=== PATIENT | female | born 1945 | race Caucasian/White ===

== ENCOUNTER 2022-04-30 08:38 | Outpatient (CLI) | payer MEDICARE, SELFPAY ==
[2022-04-30 13:55] LABS: Albumin* 4.5 g/dL (3.3-5.0)
[2022-04-30 13:56] LABS: Chloride* 102 mmol/L (96-114); Sodium* 136 mmol/L (135-149)
[2022-04-30 13:58] LABS: Cholesterol* 194 mg/dL (90-199); Creatinine* 0.6 mg/dL (0.5-1.5); Estimated Glomerular Filt Rate 92 ml/min
[2022-04-30 13:59] LABS: Alanine Aminotransferase* 15 U/L (4-35); Alkaline Phosphatase* 75 U/L (40-150); Aspartate Amino Transferase* 35 U/L (12-35); Bilirubin Total* 0.5 mg/dL (0.1-1.5); Blood Urea Nitrogen* 19 mg/dL (7-30); Carbon Dioxide* 28 mmol/L (20-32); Glucose* 97 mg/dL (60-115); Total Protein* 7.2 g/dL (6.0-8.3); Triglycerides* 154 mg/dL (40-149)
[2022-04-30 14:00] LABS: Calcium* 9.4 mg/dL (8.4-10.6); HDL Cholesterol* 58 mg/dL (>=50); LDL Cholesterol Calculated 105 mg/dL (<100); Potassium* 5.2 mmol/L (3.6-5.1)
== END 2022-04-30 08:39 | disposition home or self-care (01) ==
PROVIDERS: PCP Physician Assistant Medical; Visit Provider Physician Assistant Medical
DX: Z00.00 Encounter for general adult medical examination without abnormal findings (principal); I10 Essential (primary) hypertension; E78.5 Hyperlipidemia, unspecified; Z13.29 Encounter for screening for other suspected endocrine disorder
CPT/HCPCS: 80053; 80061; 84443

== ENCOUNTER 2023-05-11 15:36 | Outpatient (CLI) | payer MEDICARE, SELFPAY | END 2023-05-11 15:37 | disposition home or self-care (01) | LOC: NFLDREF 05-13 11:32 | PROVIDERS: PCP Physician Assistant Medical; Referring Provider Physician Assistant Medical; Visit Provider Obstetrics & Gynecology | DX: R32 Unspecified urinary incontinence (principal); N81.3 Complete uterovaginal prolapse | CPT/HCPCS: 87086; 87186 ==

== ENCOUNTER 2023-06-03 10:39 | Outpatient (CLI) | payer MEDICARE, SELFPAY | END 2023-06-03 10:40 | disposition home or self-care (01) | LOC: NFLDREF 06-04 03:47 | PROVIDERS: PCP Physician Assistant Medical; Referring Provider Physician Assistant Medical; Visit Provider Physician Assistant Medical | DX: N39.0 Urinary tract infection, site not specified (principal); Z01.818 Encounter for other preprocedural examination | CPT/HCPCS: 87086 ==

== ENCOUNTER 2023-06-16 06:06 | Day surgery (SDC) | payer MEDICARE, SELFPAY ==
[2023-06-16] VITALS (34 sets, daily range): BP systolic 88–180; BP diastolic 43–97; PULSE 62–99; RESP 11–18; TEMP 34.4–36.9; O2SAT 90–98; BMI 20.2
--- OUTSIDE RECORDS SUMMARY | 2023-06-16 06:07 | XMS_ITS | Continuity of Care Document ---
Author Name Unknown Organization [facility] Address [address] [address] [place] [address] Phone Care Team Providers Care Teacher Vocal Name Role Phone Kana Vallejo MD Unavailable Unavailable Allergies, Adverse Reactions, Alerts Substance Reaction Status Criticality No Known allergies Medications Medication Instructions Dosage Effective Dates (start - stop) Status Comments simvastatin 40 mg Tab Take one tablet by mouth daily - Active Asacol 400 mg Tab Take two tablets by mouth twice per day - Active magnesium 200 mg Tab Take two tablets by mouth daily - Active zinc 50 mg Tab Take one tablet by mouth daily - Active CALCIUM + VITAMIN D 600-200TABLET Take one tablet by mouth daily - Active ascorbic acid 1,000 mg Tab Take two tablets by mouth daily - Active SELENIUM 25MCGTABLET Take one tablet by mouth daily - Active enalapril maleate 20 mg Tab Take one tablet by mouth daily - Active potassium 99 mg Tab Take one tablet by mouth daily - Active multivitamin Tab Take one tablet by mouth daily - Active Procedures Procedure Date Colonoscopy Flex; W/bx 1/mx Level Iv-surg Path Gross/micro 09 Offic/outpt E&m Estab Mod-hi 2 07 Advance Directives Directive Yes / No Effective Date File Name No Information Encounters Encounter Description Practice Location Reason(s) For Visit Diagnoses Date Provider Providers Copied on Encounter [facility], [address] [address], [place], [place], [address], [place] tel:[phone] [facility] No Information 0 Yoni Roger. [address] [facility], [facility] [address], [place], [place], [address], [place]. tel:[phone] [facility] [place], [address] [address], [place], [place], [address], [place] tel:[phone] [facility] Polyp-intes/re ct/stom-unc BehColon Cancer ScreeningRecta l Polyp/Benign 200 9 No Information Referring Provider: Kailey Bustos MD M, [address] , [place], [address]. tel:[phone] Offic/outpt E&m Estab Mod-hi 2 [facility] [place], [address] [address], [place], [place], [address], [place] tel:[phone] [facility] Ulcerative Proctosigmoidi tis 7 No Information [facility] [place], [address] [address], [place], [place], [address], [place] tel:[phone] [facility] No Information 7 Gretta Ordonez. [address] [facility], [facility] [address], [place], [place], [address], [place]. tel:[phone] Family History Family Member Type Diagnosis Age At Onset No Information Payers Payer name Insurance type Covered republican ID Authoriza woo(s) [employer] Of [place] BL [id number] Social History Type Description Quantity Date Captured Comments Sex Female Smoking Status No Information Chief Complaint And Reason For Visit No Information Reason For Referral Reason For Referral No Information History Of Present Illness Encounter Date Complaint History Of Prese nt Illness No Information Functional Status Date Functional Assessmen t No Information Instructions Date Instruction Additional Infor mation No Information Assessments Type Assessment Date No Information Patient Care Teams Name Effective Dates (start - stop) Status Members No Information
--- OUTSIDE RECORDS SUMMARY | 2023-06-16 06:08 | XMS_ITS | Continuity of Care Document ---
Author Name Unknown Organization [facility] Address [address] [address] [place] [address] Phone Care Team Providers Care Lump Maker Name Role Phone Kana Vallejo MD Unavailable [...] Diagnoses Date Provider Providers Copied on Encounter [facility], [address] [address], [place], [place], [address], [place] tel:[phone] [facility] No Information 0 Yoni Roger. [address] [facility], [facility] [address], [place], [place], [address], [place]. tel:[phone] [facility] [place], [address] [address], [place], [place], [address], [place] tel:[phone] [facility] Polyp-intes/re ct/stom-unc BehColon Cancer ScreeningRecta l Polyp/Benign 200 9 No Information Referring Provider: Kailey Bustos MD M, [address] , [place], [address]. tel:[phone] Offic/outpt E&m Estab Mod-hi 2 [facility] [place], [address] [address], [place], [place], [address], [place] tel:[phone] [facility] Ulcerative Proctosigmoidi tis 7 No Information [facility] [place], [address] [address], [place], [place], [address], [place] tel:[phone] [facility] No Information 7 Gretta Ordonez. [address] [facility], [facility] [address], [place], [place], [address], [place]. tel:[phone] Family History Family Member Type Diagnosis Age At Onset No Information Payers Payer name Insurance type Covered libertarian ID Authoriza woo(s) [employer] Of [place] BL [id number] Social History Type Description Quantity Date Captured [...]
[2023-06-16] MEDS: SODIUM CHLORIDE 0.9 % (FLUSH) 10 ML SYRINGE IVF (06:40)
[2023-06-16] MEDS: LACTATED RINGERS 1000 ML 1,000 ML 100 ML IV (06:40)
[2023-06-16 06:58] LABS: Hemoglobin* 12.8 gm/dL (12.0-16.0)
[2023-06-16 07:19] LABS: Creatinine* 0.6 mg/dL (0.5-1.5); Est. Creatinine Clearance* 42.37; Estimated Glomerular Filt Rate 91 ml/min
--- NOTE | 2023-06-16 08:01 | P.PCN_ITS ---
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 Postoperative diagnosis: Same, left ovarian cyst Procedure: Total vaginal hysterectomy, anterior and posterior repair. Morfin's culdoplasty. Diagnostic cystoscopy Anesthesia: Spinal, local. Surgeon: Angelica Torres MD facilities maintenance assistant: Rashaun Levin MD Primary surgeon for diagnostic cystoscopy was Dr. Fonseca EBL: 125 mL IV Fluid: 800 mL Urine output: Not recorded because much of the urine output was cystoscopy fluid. Drains: Kirkland to gravity: Clear urine at the end of the procedure., Vaginal pack in place Specimen: 1. Uterus with cervix and right ovary and right fallopian tube. 2. Left ovary and left fallopian tube. Both to pathology Findings: On exam under anesthesia: Less than 8 week size uterus with complete procidentia. Large external hemorrhoids. Prolapse: Grade 4. Short perineal body Other: Right ovary and tube appeared normal. Left tube appeared normal. Left ovary had an approximately 2-3 cm serous cyst. Procedure: Светлана was taken to the operating room where general anesthesia was found be adequate. She is placed in the dorsal lithotomy position and an exam under anesthesia performed with the findings stated above. She was then prepped and draped in a sterile manner. The diagnostic cystoscopy was performed. Please see Dr. Fonseca is note for complete details. A Kirkland catheter was placed. A weighted speculum was placed in the posterior aspect of the vaginal introitus. The cervix was grasped with a double toothed tenaculum and the cervix circumferentially injected dilute vasopressin, 20 units diluted in 50 mL of saline. A circumferential incision was made around the cervix with a scalpel. The anterior vaginal mucosa was grasped with an Allis clamp and the anterior cul-de-sac formed with Metzenbaum scissors. The peritoneum was grasped an with toothed forceps and the peritoneum entered sharply with Metzenbaum scissors. This opening was extended with blunt pressure and a Liam retractor placed through the opening. The posterior cul-de-sac was entered sharply with Williamson scissors and a long weighted speculum was placed. Pedicles of the hysterectomy were formed using Heriberto clamps. All pedicles were Heriberto transfixed. The 1st pedicle was formed on the patient's left incorporating the uterosacral ligament. This was divided and Daysi transfixed. These sutures were tagged with a small clamp. The right uterosacral ligament was grasped in the 1st right pedicle that pedicle was divided, Heriberto transfixed in the sutures held with a small Radha clamp. Sequential pedicles were then formed using Daysi clamps, all pedicles were divided sharply and Heriberto transfixed. At the level of the cornea at the utero ovarian ligament ligament were cross-clamped with a Daysi clamp and divided. The cornual pedicles were doubly suture ligated: 1st with an 0 Vicryl free tie followed by an 0 Vicryl stick tie in a fore and aft manner. All pedicles were noted to be hemostatic. The long weighted speculum was removed and the short weighted speculum replaced in the vaginal introitus. In Morfin's culdoplasty was performed. The peritoneum was identified circumferentially and grasped with 2 Allis clamps. The weighted speculum removed. The vaginal cuff was re-approximated using 0 Vicryl sutures in a figure of X manner. The uterosacral pedicles were incorporated into each apex of the vaginal cuff. The Morfin's culdoplasty suture was tied after the vaginal cuff was closed. Excellent hemostasis was noted. Attention was turned to performing the anterior repair. Allis clamp was placed in the midline of the anterior vaginal mucosa approximately 1 cm under the urethral meatus. Two additional Allis clamps were placed 1 just superior to each apex of the vaginal cuff repair. 1% lidocaine with epinephrine was injected between the 2 Allis clamps just above the cuff and in the midline to the Allis that was placed below the urethral meatus. A horizontal incision was then made between the 2 Allis clamps just above the vaginal cuff. Is vaginal mucosa was undermined with the Metzenbaum scissors. The excess mucosa was grasped with a combination of Mak and Allis clamps. The underlying fascial tissue was mobilized from the vaginal mucosa using an open Ray-Emy sponge. Two 0 Vicryl interrupted sutures were used to grasp the lateral vaginal fascial tissue and tied together in the midline. The excess vaginal mucosa was then removed and the remaining vertical incision was re-approximated using 3-0 Vicryl in a running locked manner. Excellent hemostasis verified. Attention was turned to performing the posterior repair. An Allis clamp was placed at the apex of the posterior repair in the midline of the vaginal mucosa posteriorly, 2 Allis clamps were placed in the posterior introitus approximately 1 cm within the introitus. 1% lidocaine with epinephrine was instilled between the 2 horizontal clamps and in the midline to the apical clamp. A horizontal incision was made between the 2 most proximal Allis clamps and a horizontal midline incision was made from the apex clamp to the midline horizontal incision. The vaginal mucosa was then undermined with Metzenbaum scissors and the vaginal fascia was mobilized from the mucosa using a Ray-Emy sponge. The lateral vaginal fascia was then reapproximated using 2 0 Vicryl interrupted sutures. The excess mucosal tissue was removed and the remaining incision reapproximated using 3-0 Vicryl in a running locked manner. Hemostasis verified. A vaginal pack with Premarin cream was placed in the vaginal canal to be removed tomorrow morning by the physician. Sponge, lap and instrument counts were correct x2 at the end of the procedure and the patient was taken to the recovery room in stable condition. Prior to the procedure the patient received: 2 g Ancef for antibiotic prophylaxis
[2023-06-16] MEDS: CEFAZOLIN 2 GM INJ IVP (08:05)
[2023-06-16] MEDS: 0.9 % SODIUM CHLORIDE 50 ml INJECTION (08:15)
[2023-06-16] MEDS: ESTROGENS, CONJUGATED VAGINAL 0.625 MG/G CREAM 1 APPLIC VAGINAL (10:16)
[2023-06-16] MEDS: VASOPRESSIN 20 UNIT/ML INJ INJECTION (10:23)
--- NOTE | 2023-06-16 10:24 | P.GYNPRC_ITS ---
Procedure Note Time Seen by Provider: 10:24 Date of procedure: 06/16/23 Pre-op diagnosis: Stage 4 uterine and anterior vaginal prolapse Procedure: Diagnostic cystoscopy Complications: Uncomplicated, however the planned procedure of bilateral ureteral stent placement could not be technically accomplished secondary to distorted anatomy given severe uterine and anterior pelvic organ prolapse. Surgeon: Rashaun Egan MD Meter Calibrator: Angelica Torres Findings: Exam under anesthesia significant for stage IV uterine and anterior pelvic organ prolapse resulting in significantly altered anatomy Narrow ureteral orifices bilaterally Procedure Description: Patient was taken to the operating room with IV running. She received cefazolin in preoperative prophylaxis. She was positioned on the operating table in dorsal lithotomy position with candy-cane stirrups. She was prepped and draped in the usual sterile fashion. Exam under anesthesia revealed the above-noted findings. Diagnostic cystoscopy with the 30 degree cystoscope was performed. No focal bladder lesions visualized. Ureteral orifices were unable to be visualized given severe degree of uterine and anterior pelvic organ prolapse. The uterus was suspended with use of a vaginal sponge stick, where we could still not visualize the UOs secondary to prolapse. We transitioned to the 70 degree cystoscope to see if this could improve visualization without success. Gentle digital vaginal exam was attempted to assist with visualization, where the trigone of the bladder could then be visualized. The right ureteral orifice was noted to be significantly narrowed. Left ureteral orifice was narrowed as well, but I did suspect we could pass the stent during concurrent ureteral efflux. 0.035 flexible tip wire was introduced into the operative channel of the cystoscope. Even still, the wire could not be passed through the left ureteral orifice due to significantly altered anatomy resulting in an acute inferior angle to access the UO. A deflecting operative bridge was unavailable. Ultimately, decision was made to stop efforts for ureteral stenting given significantly altered anatomy in the setting of stage 4 uterine and anterior prolapse. Cystoscope was removed and urinary vargas catheter was inserted to drain the bladder. Procedure was turned over to Dr. Torres for planned total vaginal hysterectomy, bilateral salpingo-oophorectomy, anterior and posterior repairs. Diagnostic cystoscopy procedure was well tolerated and uncomplicated.
[2023-06-16] MEDS: HYDROmorphone 0.5 mg/0.5 ml inj IVP (10:35)
--- NOTE | 2023-06-16 10:45 | W.ANESCHARGE ---
Anesthesia Charges Start Date/Time Anesthesia Start Date: 06/16/23 Anesthesia Start Time: 07:37 Stop Date/Time Anesthesia Stop Date: 06/16/23 Anesthesia Stop Time: 10:30
[2023-06-16] MEDS: fentaNYL 100 MCG/2 ML inj 50 MCG IVP (10:55)
[2023-06-16] MEDS: KETOROLAC 15 MG/ML inj IVP ×2 (12:32→18:50)
[2023-06-16] MEDS: LACTATED RINGERS 1000 ML 1,000 ML 125 ML IV (12:35)
--- NOTE | 2023-06-16 14:03 | W.PM.H&PU ---
History & Physical Update History & Physical Update H&P Reviewed and patient assessed: No changes noted
[2023-06-16] MEDS: ENALAPRIL MALEATE 10 MG TABLET 20 MG PO (18:50)
[2023-06-16] MEDS: sulfaSALAzine 500 MG TABLET PO ×2 (19:23→20:39)
--- NOTE | 2023-06-16 20:10 | PC.NURSE ---
End of shift-- Pleasant and cooperative, alert and oriented patient arrived from PACU at approximately 11
--- NOTE | 2023-06-16 20:11 | PC.NURSE ---
End of shift-- Very pleasant and cooperative, alert and oriented patient arrived from PACU at approximately 1130. VSS, though mildly hypertensive, and pt is afebrile. SPO2 maintained >90% on RA. She c/o some surgical pain initially and later some chronic left hip pain that appears well managed with scheduled Toradol. She has had a moderate amount of bloody drainage that saturated vaginal packing and pad over the course of about 6 hours. Pad was changed and will be monitored by oncoming shift. LS CTA. She denied nausea and is slowly eating a regular dinner at this time without difficulty. Kirkland is patent and draining adequate amounts of blue-green urine. Pt was up and walked in room and sat on toilet this evening with SBA and tolerated it well. Report to [facility].
[2023-06-16] MEDS: SIMVASTATIN 40 MG TABLET PO (20:39)
[2023-06-17] VITALS (10 sets, daily range): BP systolic 153–156; BP diastolic 76–92; PULSE 81–88; RESP 15–18; TEMP 36.8–36.9; O2SAT 93–98
[2023-06-17] MEDS: KETOROLAC 15 MG/ML inj IVP (00:09)
--- NOTE | 2023-06-17 06:39 | PC.NURSE ---
End of shift report [id number]: Patient alert and oriented x 4, pleasant and cooperative with cares. Pain to vaginal area reported at 1/10, no PRN medication needed as pain is tolerable for patient. Pad changed at 2100 and was 25% saturated, checked periodically throughout the night and pad remain at 25% saturated Q4H. Catheter discontinued at 0550 without complication and catheter tip intact. Urine is clear and pale yellow in color. Ambulates with walker for comfort, patient usually does not use an assistive device but did request one while in hospital.
[2023-06-17] MEDS: sulfaSALAzine 500 MG TABLET PO (08:24)
[2023-06-17] MEDS: ACETAMINOPHEN 325 MG TABLET 650 MG PO (08:24)
[2023-06-17] MEDS: FEXOFENADINE 180 MG TABLET PO (08:25)
--- NOTE | 2023-06-17 08:41 | P.DS_ITS ---
DS: Providers Provider Time Seen by Provider: 07:30 Date Seen: 06/17/23 Primary care physician: Poonam Macedo PA-C Attending Physician on discharge: Rashaun Egan MD ENVIRONMENTAL PROTECTION SPECIALIST-Discharge Summary Hospital Course Hospital Course Narrative: Patient is a 78 year old admitted on 06/17/2023 for post-op care following TVH, B SO, anterior and posterior repairs, cystoscopy. Indication for surgery: Pelvic Organ Prolapse. Intraoperative findings were notable for stage 4 uterine, anterior and stage 2 posterior prolapse. She had an uncomplicated surgery. Postoperative course has been uneventful. Vitals have been stable. She has remained afebrile. Today, on postoperative day 1, she reports the pain is well controlled. She has not utilized any narcotics, notes oxycodone made her vomit previously. We discussed a trial of tramadol as needed after dismissal, just so she had a stronger pain medicine on hand if needed. She will either not pick this up or will dispose of medications following postoperative course if not needed. She has been able to ambulate Without difficulty. She is tolerating regular diet. She is passing flatus. Kirkland catheter has been removed, will complete a PVR after spontaneous void this morning. Time Spent with Patient Time attestation: Total time spent providing and/or coordinating discharge services: Time spent: Less than 30 minutes ENVIRONMENTAL PROTECTION SPECIALIST - Exam Physical Exam: Vital signs: Temp Pulse Resp BP Pulse Ox O2 Del Method 98.5 F 81 16 153/92 H 95 Room Air 06/17/23 07:00 06/17/23 07:00 06/17/23 07:23 06/17/23 07:00 06/17/23 07:00 06/17/23 07:00 Narrative: General: No acute distress Psych: Alert and oriented x 3, full affect Abdomen: Normoactive bowel sounds, soft, no tenderness, rebound, or guarding, no masses, no hepatosplenomegaly, no hernias Lower extremities: No calf pain, erythema or swelling ENVIRONMENTAL PROTECTION SPECIALIST - DS: Data Data Completed and Pending Labs on day of discharge: Labs from last 24 hours 06/17/23 06:15 Hgb 13.0 Procedures Procedures: Procedures Operation Date: 06/16/23 07:15 Actual Procedure Side Surgeon p Total Vaginal Hysterectomy, Bilateral Salpingo-Oophorectomy, Anterior and Posterior Vaginal Repairs, Morfin's Culdoplasty, Diagnostic Cystoscopy Not Applicable Angelica Torres MD Discharge Plan Discharge Disposition: Home, Self-Care Discharging Surgeon: Yumiko Egan Follow-Up Appointment: Already scheduled: 1. 2-3wks. 2. 6 weeks. Prescriptions: New acetaminophen 325 mg Tablet 650 mg PO Q4H PRN (Reason: minor pain) Qty: 100 0RF docusate sodium 100 mg Capsule 100 mg PO BID PRN (Reason: Constipation) Qty: 100 0RF oxycodone 5 mg Tablet 5 mg PO 3XD PRNQty: 21 0RF Premarin 0.625 mg/gram cream 0.625 mg vaginal DAILY 14 Days Qty: 30 1RF Rx Instructions: Utilize daily at bedtime for 14 days tramadol 50 mg tablet 50 mg PO Q8H PRN (Reason: pain) Qty: 10 0RF Continued Multiple vitamin PO zinc acetate 25 mg (zinc) capsule 50 mg PO QDAY B-Complex PO turmeric 1,500 mg PO fexofenadine [Allergy Relief (fexofenadine)] 180 mg tablet 180 mg PO Q24H magnesium 250 mg tablet 250 mg PO QDAY ascorbate calcium (vitamin C) 500 mg tablet 1 g PO Q6H enalapril maleate 20 mg tablet 20 mg PO QPM Qty: 90 3RF sulfasalazine 500 mg tablet 500 mg PO QID Qty: 360 0RF Rx Instructions: Take 1 tablet 4 times daily for ulcerative colitis simvastatin 40 mg tablet 40 mg PO .Bedtime Qty: 90 0RF Activity Level: Activity as Tolerated Discharge Diet: Regular Patient Instructions: Vaginal Hysterectomy (DC), Vaginal Hysterectomy (GEN) Additional Instructions: ACTIVITY RESTRICTIONS: - Nothing vaginally for 6 weeks: no tampons/intercourse - No driving while taking narcotic pain medication during the day. 1-2 weeks. - Lifting restriction: Maximum of 10 pounds for 6 weeks. (A gallon of milk is 9 pounds). - High impact or core exercises: 3 weeks. - Submerge in water (bath/pool/packer): 2 weeks. NO RESTRICTIONS for: - Walking - Going up/down stairs - Showering Symptoms to report to your doctor - Bleeding that is red, like a moderate period - Passing clots larger than the size of a golf ball - Pain not relieved by prescribed medication - Fever above 100.4 degrees Fahrenheit - A foul vaginal odor - Decrease in urination or painful, frequent urinating - Chest pain - Shortness of breath - Tenderness or pain with redness and/swelling in the calf(s) of your leg Follow-up Appointments with Angelica Torres MD: 1. [facility] for an incision check. 2. A 6 week postop visit to verify that the vaginal cuff is well-healed. Forms: Work/School Release Follow-up: Angelica Torres MD [Staff Physician] - Poonam Macedo PA-C [Primary Care Provider] - Discharge Orders: Discharge Order (Routine); Ordered 06/17/23 Ordered By: Yumiko Egan Consulting provider completed their portion of the discharge: Yes
--- NOTE | 2023-06-17 09:36 | PC.NURSE ---
Pt voided 100 mL of cj colored urine in collection container and PVR of 95 mL upon bladder scan. Preceptor RN updated OBGYN provider.
--- NOTE | 2023-06-17 10:40 | PC.NURSE ---
Voiding trial completed per order though pt was only able to tolerate 200 mL of saline solution instilled before c/o discomfort. Pt was able to void 400 mL of cj urine upon followup. MD Egan updated and advised RN to perform repeat bladder scan- 43 mL noted PVR. updated with result and stated that pt can discharge.
--- NOTE | 2023-06-17 11:54 | PC.NURSE ---
Pt discharged at 11:39 today with son providing transportation. IV removed from L wrist prior to discharge with catheter noted to be intact. Discharge paperwork reviewed including activity instructions and follow up care. Patient voided 400 mL with last urination and was noted to only have 43 mL PVR. Lung sounds clear to all lobes bilaterally and bowel sounds active x 4. Pt having less than 25% of pad saturations prior to discharge. The only c/o pain pt had this morning was L hip and she stated this has been a source of chronic pain. Pt able to complete ADLs indepedenently and denied shortness of breath, nausea, CP, numbness and tingling when asked prior to discharge.
== END 2023-06-17 11:39 | disposition home or self-care (01) ==
LOC: OR 06:06 → MEDSURG 06:09
PROVIDERS: Obstetrics & Gynecology; PCP Physician Assistant Medical; Visit Provider Obstetrics & Gynecology
PROC: 0TJB8ZZ Inspection of Bladder, Via Natural or Artificial Opening Endoscopic (ICD-10-PCS; CPT 57260; principal; 2023-06-16 07:15)
DX: N81.3 Complete uterovaginal prolapse (principal); N83.292 Other ovarian cyst, left side; N13.5 Crossing vessel and stricture of ureter without hydronephrosis; K64.4 Residual hemorrhoidal skin tags
CPT/HCPCS: 58263; 57265; 00944; 36415; 82565; 85018; 86850; 86900; 86901; 88305; 88307; A9270; C1769; J0330; J0690; J1100; J1170; J1885; J2274; J2371; J2405; J2704; J3010; J7120

== ENCOUNTER 2023-08-19 13:58 | Outpatient (CLI) | payer MEDICARE, SELFPAY | END 2023-08-19 13:59 | disposition home or self-care (01) | PROVIDERS: PCP Physician Assistant Medical; Visit Provider Otolaryngology | DX: N39.0 Urinary tract infection, site not specified (principal); I10 Essential (primary) hypertension; E78.5 Hyperlipidemia, unspecified; D72.819 Decreased white blood cell count, unspecified; H91.20 Sudden idiopathic hearing loss, unspecified ear | CPT/HCPCS: 84443; 86039; 86431; 86618 ==

== ENCOUNTER 2023-08-26 10:35 | Outpatient (CLI) | payer MEDICARE, SELFPAY | END 2023-08-26 10:36 | disposition home or self-care (01) | LOC: NFLDREF 08-30 11:05 | PROVIDERS: PCP Physician Assistant Medical; Referring Provider Physician Assistant Medical; Visit Provider Otolaryngology | DX: R76.8 Other specified abnormal immunological findings in serum (principal) | CPT/HCPCS: 86039 ==

== ENCOUNTER 2023-09-02 12:53 | Outpatient (CLI) | payer MEDICARE, SELFPAY ==
--- OUTSIDE RECORDS SUMMARY | 2023-09-07 02:55 | XMS_ITS | Continuity of Care Document ---
Author Name Unknown Organization [facility] Address [address] [address] [place] [address] Phone Care Team Providers Care Cellar Pumper Name Role Phone Kana Vallejo MD Unavailable [...] Diagnoses Date Provider Providers Copied on Encounter [facility], [address] [address], [place], [place], [address], [place] tel:[phone] [facility] No Information 0 Yoni Roger. [address] [facility], [facility] [address], [place], [place], [address], [place]. tel:[phone] [facility] [place], [address] [address], [place], [place], [address], [place] tel:[phone] [facility] Polyp-intes/re ct/stom-unc BehColon Cancer ScreeningRecta l Polyp/Benign 200 9 No Information Referring Provider: Kailey Bustos MD M, [address] , [place], [address]. tel:[phone] Offic/outpt E&m Estab Mod-hi [address] [facility] [place], [address] [address], [place], [place], [address], [place] tel:[phone] [facility] Ulcerative Proctosigmoidi tis 7 No Information [facility] [place], [address] [address], [place], [place], [address], [place] tel:[phone] [facility] No Information 7 Gretta Ordonez. [address] [facility], [facility] [address], [place], [place], [address], [place]. tel:[phone] Family History Family Member Type Diagnosis Age At Onset No Information Payers Payer name Insurance type Covered libertarian ID Authoriza woo(s) [employer] Of [place] BL [id number] Social History Type Description Quantity Date Captured [...]
== END 2023-09-02 12:54 | disposition home or self-care (01) ==
LOC: NFLDREF 09-07 02:52
PROVIDERS: PCP Physician Assistant Medical; Referring Provider Physician Assistant Medical; Visit Provider Physician Assistant Medical
DX: R30.0 Dysuria (principal)
CPT/HCPCS: 87086; 87186

== ENCOUNTER 2023-09-23 10:28 | Outpatient (CLI) | payer MEDICARE, SELFPAY | END 2023-09-23 10:29 | disposition home or self-care (01) | LOC: NFLDREF 09-25 08:01 | PROVIDERS: PCP Physician Assistant Medical; Referring Provider Physician Assistant Medical; Visit Provider Physician Assistant Medical | DX: R76.8 Other specified abnormal immunological findings in serum (principal) | CPT/HCPCS: 86039 ==

== ENCOUNTER 2023-10-02 11:00 | Outpatient (CLI) | payer MEDICARE, SELFPAY | END 2023-10-02 11:01 | disposition home or self-care (01) | LOC: NFLDREF 10-14 12:14 | PROVIDERS: PCP Physician Assistant Medical; Referring Provider Physician Assistant Medical; Visit Provider Physician Assistant Medical | DX: R80.9 Proteinuria, unspecified (principal) | CPT/HCPCS: 82570; 84156 ==

== ENCOUNTER 2023-10-12 14:51 | Outpatient (CLI) | payer MEDICARE, SELFPAY ==
--- NOTE | 2023-10-12 15:00 | US_ITS ---
Final Report Patient: IHSAN REGALADO Facility:?[facility] Patient ID:?[id number] Site Patient ID:?[id number]. Site :?1945 Study:?US Abdomen renal Doppler-10/12/2023 6:20:57 PM Ordering Physician:BRENDA Final Report: INDICATION: Hypertension TECHNIQUE: Grayscale, color Doppler and power doppler evaluation of the kidneys and renal arteries performed. COMPARISON: None available FINDINGS: BILATERAL RENAL ARTERY DUPLEX ULTRASOUND ABDOMINAL AORTA: Peak systolic velocity = 59 cm/s. No aortic aneurysm. RIGHT KIDNEY: 10.5 cm in length. There is no hydronephrosis. Peak systolic velocity = 105 cm/second Renal artery to aortic peak systolic velocity ratio = 1.8 Resistive indices: 0.6-0.7 Renal vein = patent LEFT KIDNEY: 9.2 cm in length. There is no hydronephrosis. Simple cyst upper pole measuring 1.4 x 1.3 x 1.3 cm. Peak systolic velocity = 120 cm/second Renal artery to aortic peak systolic velocity ratio = 2.0 Resistive indices: 0.6 Renal vein = patent IMPRESSION: No evidence of significant renal artery stenosis. Dictated by José Luis Lopez MD @ 10/13/2023 12:11:23 PM (Electronic Signature)
== END 2023-10-12 14:52 | disposition home or self-care (01) ==
LOC: US 14:52
PROVIDERS: PCP Physician Assistant Medical; Visit Provider Physician Assistant Medical
DX: I10 Essential (primary) hypertension (principal)
CPT/HCPCS: 76775; 93975

== ENCOUNTER 2023-10-13 12:40 | Outpatient (CLI) | payer MEDICARE, SELFPAY ==
--- NOTE | 2023-10-13 13:00 | MR_ITS ---
Patient: IHSAN REGALADO Facility:?[facility] Patient ID:?[id number] Site Patient ID:?[id number]. Site :?1945 Study:?MRI-Head Angio WO-10/13/2023 3:50:07 PM Ordering Physician:BRENDA Final Report: INDICATION: Dizziness. Hearing loss. TECHNIQUE: MRI brain: Multiplanar multisequence MR imaging of the brain prior to and following intravenous contrast. MRA head: Baxx-qt-sxubkk imaging acquired. MRA neck: Mzkk-eb-rmvspw and postcontrast imaging acquired. COMPARISON: None. FINDINGS: MRI brain: Prominence of the ventricles and sulci compatible with mild diffuse cerebral volume loss. No mass effect or midline shift. Scattered and patchy FLAIR hyperintensities in the supratentorial white matter, typical for vzni-hf-ehrkqkyl chronic microvascular ischemic changes. Few punctate foci of susceptibility at the cortical-subcortical interface of both cerebral hemispheres as well as within the right basal ganglia and right internal capsule, typical for chronic microhemorrhages. No recent intracranial hemorrhage or pathologic extra-axial fluid collection. No diffusion restriction to suggest acute infarction. No pathologic intracranial enhancement. The major arterial flow voids of the skullbase are preserved. The globes are symmetric. The paranasal sinuses are well aerated. The mastoid air cells are clear. MRA head: The internal carotid, middle cerebral, and anterior cerebral arteries are patent. Mild atherosclerotic calcified irregularity of the cavernous internal carotid arteries. The vertebral, basilar, and posterior cerebral arteries are patent. Moderate narrowing right vertebral artery mid V4 segment. No intracranial aneurysm or high-flow vascular malformation. MRA neck: The innominate and subclavian arteries are widely patent. The common carotid arteries are widely patent. Mild atherosclerotic irregularity of the proximal cervical internal carotid arteries without hemodynamically significant luminal narrowing. The vertebral arteries are codominant and widely patent. IMPRESSION: MRI brain: 1. No acute intracranial abnormality. 2. Rofp-yu-hdrgyjlo chronic microvascular ischemic changes and mild diffuse cerebral and loss. MRA head/neck: 1. Moderate right vertebral artery mid V4 segment stenosis. Mild atherosclerotic irregularity of the cavernous internal carotid arteries. 2. No hemodynamically significant cervical artery narrowing. Dictated by Tashi Miller MD @ 10/13/2023 4:33:18 PM Signed by:?Tashi Miller MD @10/13/2023 4:33:18 PM (Electronic Signature)
--- NOTE | 2023-10-13 13:45 | MR_ITS ---
Patient: IHSAN REGALADO Facility:?[facility] Patient ID:?[id number] Site Patient ID:?[id number]. Site :?1945 Study:?MRI-Neck Angio WO/W DOTAREM 11ML-10/13/2023 3:55:42 PM Ordering Physician:BRENDA Final Report: INDICATION: Dizziness. Hearing loss. TECHNIQUE: MRI brain: Multiplanar multisequence MR imaging of the brain prior to and following intravenous contrast. MRA head: Jyxi-us-ulfxth imaging acquired. MRA neck: Kuor-xk-wchwry and postcontrast imaging acquired. COMPARISON: None. FINDINGS: MRI brain: Prominence of the ventricles and sulci compatible with mild diffuse cerebral volume loss. No mass effect or midline shift. Scattered and patchy FLAIR hyperintensities in the supratentorial white matter, typical for khlj-um-fqonklks chronic microvascular ischemic changes. Few punctate foci of susceptibility at the cortical-subcortical interface of both cerebral hemispheres as well as within the right basal ganglia and right internal capsule, typical for chronic microhemorrhages. No recent intracranial hemorrhage or pathologic extra-axial fluid collection. No diffusion restriction to suggest acute infarction. No pathologic intracranial enhancement. The major arterial flow voids of the skullbase are preserved. The globes are symmetric. The paranasal sinuses are well aerated. The mastoid air cells are clear. MRA head: The internal carotid, middle cerebral, and anterior cerebral arteries are patent. Mild atherosclerotic calcified irregularity of the cavernous internal carotid arteries. The vertebral, basilar, and posterior cerebral arteries are patent. Moderate narrowing right vertebral artery mid V4 segment. No intracranial aneurysm or high-flow vascular malformation. MRA neck: The innominate and subclavian arteries are widely patent. The common carotid arteries are widely patent. Mild atherosclerotic irregularity of the proximal cervical internal carotid arteries without hemodynamically significant luminal narrowing. The vertebral arteries are codominant and widely patent. IMPRESSION: MRI brain: 1. No acute intracranial abnormality. 2. Kudc-jz-alqocpza chronic microvascular ischemic changes and mild diffuse cerebral and loss. MRA head/neck: 1. Moderate right vertebral artery mid V4 segment stenosis. Mild atherosclerotic irregularity of the cavernous internal carotid arteries. 2. No hemodynamically significant cervical artery narrowing. Dictated by Tashi Miller MD @ 10/13/2023 4:32:42 PM Signed by:?Tashi Miller MD @10/13/2023 4:32:42 PM (Electronic Signature)
--- NOTE | 2023-10-13 14:45 | MR_ITS ---
Patient: IHSAN REGALADO Facility:?[facility] Patient ID:?[id number] Site Patient ID:?[id number]. Site :?1945 Study:?MRI-Head WO/W DOTAREM 11ML-10/13/2023 3:57:58 PM Ordering Physician:BRENDA Final Report: INDICATION: Dizziness. Hearing loss. TECHNIQUE: MRI brain: Multiplanar multisequence MR imaging of the brain prior to and following intravenous contrast. MRA head: Soxq-vp-gpzafv imaging acquired. MRA neck: Jabc-jj-oraqec and postcontrast imaging acquired. COMPARISON: None. FINDINGS: MRI brain: Prominence of the ventricles and sulci compatible with mild diffuse cerebral volume loss. No mass effect or midline shift. Scattered and patchy FLAIR hyperintensities in the supratentorial white matter, typical for jycw-oz-wbgrcxcg chronic microvascular ischemic changes. Few punctate foci of susceptibility at the cortical-subcortical interface of both cerebral hemispheres as well as within the right basal ganglia and right internal capsule, typical for chronic microhemorrhages. No recent intracranial hemorrhage or pathologic extra-axial fluid collection. No diffusion restriction to suggest acute infarction. No pathologic intracranial enhancement. The major arterial flow voids of the skullbase are preserved. The globes are symmetric. The paranasal sinuses are well aerated. The mastoid air cells are clear. MRA head: The internal carotid, middle cerebral, and anterior cerebral arteries are patent. Mild atherosclerotic calcified irregularity of the cavernous internal carotid arteries. The vertebral, basilar, and posterior cerebral arteries are patent. Moderate narrowing right vertebral artery mid V4 segment. No intracranial aneurysm or high-flow vascular malformation. MRA neck: The innominate and subclavian arteries are widely patent. The common carotid arteries are widely patent. Mild atherosclerotic irregularity of the proximal cervical internal carotid arteries without hemodynamically significant luminal narrowing. The vertebral arteries are codominant and widely patent. IMPRESSION: MRI brain: 1. No acute intracranial abnormality. 2. Pgji-oo-nigrzdun chronic microvascular ischemic changes and mild diffuse cerebral and loss. MRA head/neck: 1. Moderate right vertebral artery mid V4 segment stenosis. Mild atherosclerotic irregularity of the cavernous internal carotid arteries. 2. No hemodynamically significant cervical artery narrowing. Dictated by Tashi Miller MD @ 10/13/2023 4:32:07 PM Signed by:?Tashi Miller MD @10/13/2023 4:32:07 PM (Electronic Signature)
== END 2023-10-13 12:41 | disposition home or self-care (01) ==
LOC: MRI 12:41
PROVIDERS: PCP Physician Assistant Medical; Visit Provider Physician Assistant Medical
DX: H91.90 Unspecified hearing loss, unspecified ear (principal); I67.82 Cerebral ischemia; I65.21 Occlusion and stenosis of right carotid artery; R42 Dizziness and giddiness
CPT/HCPCS: 70544; 70549; 70553; A9575

== ENCOUNTER 2024-02-15 14:05 | Outpatient (CLI) | payer MEDICARE, SELFPAY ==
--- OUTSIDE RECORDS SUMMARY | 2024-02-15 23:42 | XMS_ITS | Continuity of Care Document ---
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 [address] [facility] [address], [place], [place], [id number], [place]. tel:[phone] [facility] [place], [address] [address], [place], [place], [address], [place] tel:[phone] [facility] Polyp-intes/re ct/stom-[facility] BehColon Cancer ScreeningRecta l Polyp/Benign 7200 [id number] No Information Referring Provider: Kailey Bustos MD M, [address] , [place], [address]. tel:[phone] Offic/outpt E&m Estab Mod-hi 2 [facility] [place], [address] [address], [place], [place], [id number], [place] tel:[phone] [facility] Ulcerative Proctosigmoidi tis 7 No Information [facility] [place], [address] [address], [place], [place], [address], [place] tel:[phone] [facility] No Information 7 Gretta Ordonez. [address] [facility], [facility] [address], [place], [place], [id number], [place]. tel:[phone] Family History Family Member Type Diagnosis Age At Onset No Information Payers Payer name Insurance type Covered libertarian ID Authoriza woo(s) [employer] [place] [id number] Social History Type Description Quantity Date Captured [...]
== END 2024-02-15 14:06 | disposition home or self-care (01) ==
LOC: NFLDREF 23:40
PROVIDERS: PCP Physician Assistant Medical; Referring Provider Physician Assistant Medical; Visit Provider Family Medicine
DX: N30.00 Acute cystitis without hematuria (principal); B96.20 Unspecified Escherichia coli [E. coli] as the cause of diseases classified elsewhere
CPT/HCPCS: 87086; 87186

== ENCOUNTER 2024-05-18 09:59 | Outpatient (CLI) | payer MEDICARE, SELFPAY | END 2024-05-18 10:00 | disposition home or self-care (01) | LOC: NFLDREF 05-20 12:55 | PROVIDERS: PCP Physician Assistant Medical; Referring Provider Physician Assistant Medical; Visit Provider Physician Assistant Medical | DX: Z00.00 Encounter for general adult medical examination without abnormal findings (principal); R42 Dizziness and giddiness; E78.5 Hyperlipidemia, unspecified; I10 Essential (primary) hypertension; Z13.29 Encounter for screening for other suspected endocrine disorder | CPT/HCPCS: 80053; 80061; 82043; 82306; 82570; 82607; 84443 ==

== ENCOUNTER 2024-06-08 14:02 | Outpatient (CLI) | payer MEDICARE, SELFPAY ==
--- NOTE | 2024-06-08 14:30 | CRLHL7_ITS ---
For Patients: As a result of the Century Cures Act, medical imaging exams and procedure reports are released immediately into your electronic medical record. You may view this report before your referring provider. If you have questions, please contact your health care provider. DEXA BONE MINERAL DENSITY STUDY Reason for exam: Osteoporosis Current height (inches): 68.5 Weight (lbs.): 128 Menopause age: 49 Ethnicity: White 1. Have you had a previous hip or vertebral fracture? No. 2. Have you had any fractures during your adult life which did not result from significant trauma (e.g., auto accident)? No. 3. Did either of your parents have a hip fracture? No. 4. Do you smoke? No. 5. Have you ever taken Glucocorticoids? No. 6. Do you have rheumatoid arthritis? No. 7. Do you have secondary osteoporosis? No. 8. Do you drink 3 or more alcoholic drinks per day? No. 9. Are you being treated for osteoporosis? No. 10. Have you ever taken any of the following medications: Actonel, Evista, Fosamax, Miacalcin, Reclast, Boniva, Forteo, HRT (i.e., estrogen/hormone therapy), Protelos, Prolia, Vitamin D, Calcium, other ??? please specify. ANSWER: Yes; vitamin D, calcium, HRT. 11. Do you have any of the following medical conditions: Anorexia or bulimia, asthma or emphysema, end stage renal disease, hyperparathyroidism, any seizure disorders, cancer, inflammatory bowel diseases, hysterectomy, other ??? please specify. ANSWER: Yes; Hysterectomy. 12. What was your maximum height (inches)? Not provided. 13. Do you perform weightbearing exercise regularly? No. 14. Do you regularly consume dairy products? No. 15. Do you drink caffeinated beverages? No. 16. At what age did your period start? 12. 17. Are you premenopausal? No. 18. How many full-term pregnancies have you had? 3. 19. Have you ever missed your period for more than 6 months in a row (not including or menopause)? No. TECHNIQUE: Bone mineral density study was performed using the [employer]. FINDINGS: The results of the study expressed as bone mineral density (BMD) are as follows: Lumbar Spine L2 to L4: BMD: 0.839 g/cm2. T-score: -2.2. Z-score: 0.6. Neck Left: BMD: 0.574 g/cm2. T-score: -2.5. Z-score: -0.2. Total Left: BMD: 0.594 g/cm2. T-score: -2.9. Z-score: -0.8. Radius Left 33%: BMD: 0.484 g/cm2. T-score: -3.5. Z-score: -0.4. IMPRESSION: Osteoporosis. COMPARISON: Compared with scan of 09/28/2019, the bone mineral density has decreased by 8.4% at the spine and decreased by 16.8% at the hip. Compared with scan of 05/20/2012, the bone mineral density has decreased by 0.4% at the spine and decreased by 10.3% at the hip. *Comparison exams done prior to 01/2020 were performed on different unit, [employer]. JOSÉ LUIS HERNÁNDEZ M.D. Diagnostic Radiologist [email or web address] Transcribed: 10:[address]/Dictated by: José Luis Hernández MD @ 06/09/2024 8:38:00 AM (Electronically Signed)
== END 2024-06-08 14:03 | disposition home or self-care (01) ==
LOC: RAD 14:03
PROVIDERS: PCP Physician Assistant Medical; Visit Provider Physician Assistant Medical
DX: Z13.820 Encounter for screening for osteoporosis (principal); M81.0 Age-related osteoporosis without current pathological fracture; Z78.0 Asymptomatic menopausal state
CPT/HCPCS: 77080

== ENCOUNTER 2025-06-21 11:49 | Outpatient (CLI) | payer MEDICARE, SELFPAY | END 2025-06-21 11:50 | disposition home or self-care (01) | PROVIDERS: PCP Physician Assistant Medical; Visit Provider Physician Assistant Medical | DX: Z00.00 Encounter for general adult medical examination without abnormal findings (principal) | CPT/HCPCS: 80053; 80061; 82043; 82570; 84443; 87086 ==

== ENCOUNTER 2025-07-10 10:18 | Outpatient (CLI) | payer MEDICARE, SELFPAY | END 2025-07-10 10:19 | disposition home or self-care (01) | LOC: NFLDREF 07-13 12:15 | PROVIDERS: PCP Physician Assistant Medical; Referring Provider Physician Assistant Medical; Visit Provider Physician Assistant Medical | DX: N39.0 Urinary tract infection, site not specified (principal) | CPT/HCPCS: 87086 ==